=== PATIENT | male | born 1970 | race Caucasian/White ===

== ENCOUNTER 2018-03-08 10:58 | Inpatient (IN) ==
--- NOTE | 2018-03-08 11:37 | P.HPUP ---
The Pre-Admit History and Physical Examination regarding the above named patient was reviewed (including, but not limited to, vital signs, heart, lungs, co-morbid conditions), and upon re-examination it is noted that: the patient's condition has not significantly changed since the last examination.
[2018-03-08] MEDS ORDERED: Metoprolol Tartrate 25 MG Tablet PO ONE (11:42)
[2018-03-08] MEDS ORDERED: Chlorhexidine Gluconate 2% 1 Pack (2 Cloths) TOPICAL ONE (11:42)
[2018-03-08] MEDS ORDERED: Sodium Chlor 0.9% Inj 500 ML IV.SIG SCH (12:00)
[2018-03-08] MEDS: Dextrose 5%/NaCl 0.9% Inj 1,000 ML IV.CONT SCH ×2 (12:22→21:15)
[2018-03-08 12:24] LABS: Baso # (Auto) 0.1 th/mm3 (0.0-0.2); Baso % (Auto) 1.3 % (0.0-2.0); Eos # (Auto) 0.2 th/mm3 (0.0-0.4); Eos % (Auto) 1.8 % (0.0-4.0); Hemoglobin 12.6 gm/dL (13.0-17.0); Lymph # (Auto) 0.9 th/mm3 (1.0-4.8); Mean Corpuscular HGB Conc 32.4 % (32.0-36.0); Mean Corpuscular Hemoglobin 27.7 pg (27.0-34.0); Mean Corpuscular Volume 85.5 fL (80.0-100.0); Mean Platelet Volume 7.8 fL (7.0-11.0); Mono # (Auto) 0.7 th/mm3 (0.0-0.9); Mono % (Auto) 8.8 % (0.0-8.0); Neut # (Auto) 6.5 th/mm3 (1.8-7.7); Neut % (Auto) 77.1 % (16.0-70.0); Platelet Count 293 th/mm3 (150-450); Red Blood Count 4.57 mil/mm3 (4.50-5.90); Red Cell Distribution Width 24.4 % (11.6-17.2); White Blood Count 8.4 th/mm3 (4.0-11.0)
[2018-03-08 12:38] LABS: Activated Partial Thrombo Time 25.7 sec (24.3-30.1); Prothrombin Time 10.5 sec (9.8-11.6)
[2018-03-08 12:48] LABS: Albumin 3.2 g/dL (3.4-5.0); Anion Gap 10 meq/L (5-15); Aspartate Aminotransferase 72 U/L (15-37); Calcium 8.5 mg/dL (8.5-10.1); Carbon Dioxide 25.7 meq/L (21.0-32.0); Chloride 106 meq/L (98-107); Glomerular Filtration Rate 89 mL/min (>89); Glucose,Random 96 mg/dL (74-106); Sodium 142 meq/L (136-145)
--- NOTE | 2018-03-08 12:49 | XR ---
EXAM DATE: 03/08/2018 12:39 PM EDT AGE/SEX: 47 years / Male INDICATIONS: Evaluate for pneumonia, pneumothorax and communicable diseases. Pre-op colon surgery CLINICAL DATA: This is the patient's initial encounter. Patient reports that signs and symptoms have been present for 1 day and indicates a pain score of 0/10. MEDICAL/SURGICAL HISTORY: Hypertension. None. COMPARISON: No prior exams available for comparison. FINDINGS: A single AP view of the chest demonstrates the lungs to be symmetrically aerated without evidence of mass, infiltrate or effusion. The cardiomediastinal contours are unremarkable. Osseous structures a re intact. CONCLUSION: Negative examination. Electronically signed by: Abdi Rodrigues MD 03/08/2018 12:48 PM EDT
[2018-03-08 12:52] LABS: Amorphous Sediment,Urine Rare /hpf; Bilirubin,Urine Negative (Negative); Clarity,Urine Cloudy (Clear); Glucose,Urine (UA) Negative (Negative); Hyaline Casts,Urine 5 /lpf (0-3); Leukocyte Esterase,Urine Trace (Negative); Mucus,Urine Moderate /lpf (Occasional); Nitrite,Urine Negative (Negative); Specific Gravity,Urine 1.018 (1.002-1.035)
[2018-03-08 12:56] LABS: Alanine Aminotransferase 66 U/L (12-78); Alkaline Phosphatase 71 U/L (45-117); Blood Urea Nitrogen 8 mg/dL (7-18); Total Protein 7.6 g/dL (6.4-8.2)
[2018-03-08 12:58] LABS: Color,Urine Dark-Yellow (Yellw/Straw)
[2018-03-08] MEDS ORDERED: Neostigmine Inj 5 MG/5 ML Syringe IV.PUSH ONE (14:00)
[2018-03-08] MEDS ORDERED: Glycopyrrolate Inj 1 MG/5 ML Syringe IV.PUSH ONE (14:00)
[2018-03-08] MEDS ORDERED: Lidocaine PF 1% Inj 5 ML Syringe INFILTRATN ONE (14:00)
[2018-03-08] MEDS ORDERED: fentaNYL Citrate Inj 100 MCG/2 ML Ampul ONE ×2 (15:02→16:13)
[2018-03-08] MEDS ORDERED: HYDROmorphone PF Inj 2 MG/ML Vial ONE (15:05)
[2018-03-08] MEDS ORDERED: Ketamine Inj 500 MG/10 ML Vial ONE (15:22)
[2018-03-08] MEDS ORDERED: Bupivacaine PF 0.5% Inj 30 ML Vial ONE ×6 (15:29→15:38)
[2018-03-08] MEDS ORDERED: Acetaminophen 325 MG Tablet PO PRN (15:59)
[2018-03-08] MEDS ORDERED: Ketorolac Inj 30 MG/ML (IVP) Vial IV.PUSH PRN (15:59)
[2018-03-08] MEDS ORDERED: Potassium Chlor 20 mEq Premix 20 MEQ/100 ML PIGGYBACK IV.SIG PRN (15:59)
[2018-03-08] MEDS ORDERED: Potassium Chlor 40 mEq Premix 40 MEQ/100 ML PIGGYBACK IV.SIG PRN (15:59)
[2018-03-08] MEDS ORDERED: Naloxone Inj 0.4 MG/ML Vial IV.PUSH PRN (16:03)
[2018-03-08] MEDS ORDERED: *morphine SULFATE 4 MG/ML PERIprocedure ONLY ONE (16:16)
[2018-03-08] MEDS ORDERED: diphenhydrAMINE HCl 50 MG/ML VIAL IV.PUSH ONE (16:16)
[2018-03-08] MEDS ORDERED: KCL 20 mEq/D5W/NaCl 0.9% Inj 1,000 ML ONE (16:31)
[2018-03-08] MEDS ORDERED: Morphine Inj 30 MG/30 ML PCA.VIAL PCA ONE (16:31)
[2018-03-08] MEDS: Morphine Inj 30 MG/30 ML PCA.VIAL PCA PRN (19:00)
[2018-03-08] MEDS: Sertraline 100 MG Tablet PO SCH (21:18)
[2018-03-08] MEDS: amLODIPine 10 MG Tablet PO SCH (21:19)
[2018-03-08] MEDS: Lisinopril 10 MG Tablet PO SCH (21:19)
[2018-03-08] MEDS: KCL 20 mEq/D5W/NaCl 0.9% Inj 1,000 ML IV.CONT SCH (23:25)
[2018-03-09] MEDS: KCL 20 mEq/D5W/NaCl 0.9% Inj 1,000 ML IV.CONT SCH ×4 (03:00→18:38)
[2018-03-09] MEDS: Dextrose 5%/NaCl 0.9% Inj 1,000 ML IV.CONT SCH (05:22)
[2018-03-09 06:21] LABS: Baso % (Auto) 0.1 % (0.0-2.0); Hematocrit 34.3 % (39.0-51.0); Lymph # (Auto) 0.5 th/mm3 (1.0-4.8); Lymph % (Auto) 4.2 % (9.0-44.0); Mean Corpuscular Hemoglobin 28.2 pg (27.0-34.0); Mean Platelet Volume 7.9 fL (7.0-11.0); Mono # (Auto) 0.9 th/mm3 (0.0-0.9); Neut # (Auto) 9.5 th/mm3 (1.8-7.7); Neut % (Auto) 87.7 % (16.0-70.0); Platelet Count 286 th/mm3 (150-450); Red Cell Distribution Width 24.4 % (11.6-17.2); White Blood Count 10.8 th/mm3 (4.0-11.0)
[2018-03-09 06:46] LABS: Calcium 7.6 mg/dL (8.5-10.1); Carbon Dioxide 23.5 meq/L (21.0-32.0)
[2018-03-09] MEDS: Pantoprazole Inj 40 MG Vial IV.PUSH SCH (08:21)
[2018-03-09] MEDS: Morphine Inj 30 MG/30 ML PCA.VIAL PCA PRN (14:53)
[2018-03-09] MEDS: Sertraline 100 MG Tablet PO SCH (21:59)
[2018-03-09] MEDS: amLODIPine 10 MG Tablet PO SCH (22:00)
[2018-03-09] MEDS: Lisinopril 10 MG Tablet PO SCH (22:00)
--- NOTE | 2018-03-09 23:21 | MP ---
cc: Ru Graff MD DATE OF OPERATION: 03/08/2018 PREOPERATIVE DIAGNOSIS: Carcinoma of the ascending colon. PROCEDURE PERFORMED: Exploratory laparotomy with ascending colectomy. POSTOPERATIVE DIAGNOSES: 1. Large bulky cancer of the cecum and ascending colon. 2. Fatty change and possible cirrhosis of the liver. SURGEON: Ru Graff MD LOCKER ATTENDANT: Yinka Arias MD DESCRIPTION OF PROCEDURE: The patient was placed in the supine position. After adequate general anesthesia, the abdomen was prepped with Betadine solution and draped in the usual sterile fashion. With Dr. Arias's assistance, the abdomen was opened through a supraumbilical transverse incision, dividing the rectus muscles with electrocautery. There was an enormous amount of omental fat and omentum mesenteric fat throughout the abdomen, making exposure somewhat difficult. Palpation did reveal a fairly large tumor in the cecal area with some serosal puckering. There was some tethering to the retroperitoneum in the cecal area. The bowel was run from the ligament of Treitz down to the ileocecal valve and the small bowel was felt to be pretty unremarkable except for a very short mesentery. The colon was palpated and felt to be pretty unremarkable distal to the tumor. The liver had some either fatty change or early cirrhotic change. The gallbladder was pretty unremarkable. The stomach and duodenum were normal. The great vessels were of normal caliber and relatively soft to palpation. First, the right colon was mobilized medially by dividing along the white line of Toldt. The right ureter was identified and carefully preserved. Dissection then proceeded up the right gutter, taking down attachments to the hepatic flexure, entering the lesser sac and taking the gastrocolic omentum off the transverse colon. At a point in the right transverse colon, the bowel was divided with a JACQUELINE stapling device. The major vascular pedicles were then taken between Kellys, obtaining hemostasis with Vicryl ties. The bowel was then divided in the terminal ileum, again using the JACQUELINE stapling device. The specimen was removed. Bowel continuity was then restored by firing the JACQUELINE stapler across the antimesenteric ends of the bowel, closing the enterotomy with a TA 60 stapler. The mesenteric defect was closed with a running Vicryl suture and a 3-0 Vicryl crotch suture was placed as well. The abdomen was then irrigated copiously with normal saline. Adequate hemostasis was achieved at all sites. The transverse incision was closed anatomically in 2 layers using #1 PDS sutures to reapproximate the respective fascial layers. On-Q catheters were placed into the rectus sheaths on both sides and brought up through a subcutaneous tunnel above the transverse incision. The subcutaneous tissue was irrigated copiously and the skin closed with a row of surgical haley. The wound area was washed with normal saline and dried, sterile dressing of Telfa and gauze applied. The patient tolerated the procedure quite well and was brought to the recovery room in stable condition. Sponge and needle counts were correct at the end of the procedure. MD JACKY Srivastava/alonso , 10:57 PM , 11:05 PM
[2018-03-10] MEDS: Dextrose 5%/NaCl 0.9% Inj 1,000 ML IV.CONT SCH ×5 (02:41→20:42)
[2018-03-10 04:25] LABS: Baso % (Auto) 0.3 % (0.0-2.0); Eos % (Auto) 0.1 % (0.0-4.0); Hematocrit 35.3 % (39.0-51.0); Hemoglobin 10.9 gm/dL (13.0-17.0); Lymph # (Auto) 0.6 th/mm3 (1.0-4.8); Lymph % (Auto) 5.3 % (9.0-44.0); Mean Corpuscular Volume 90.2 fL (80.0-100.0); Mean Platelet Volume 7.4 fL (7.0-11.0); Mono # (Auto) 1.2 th/mm3 (0.0-0.9); Mono % (Auto) 10.2 % (0.0-8.0); Neut # (Auto) 9.6 th/mm3 (1.8-7.7); Neut % (Auto) 84.1 % (16.0-70.0); Platelet Count 265 th/mm3 (150-450); Red Blood Count 3.91 mil/mm3 (4.50-5.90); Red Cell Distribution Width 24.8 % (11.6-17.2); White Blood Count 11.4 th/mm3 (4.0-11.0)
[2018-03-10 04:58] LABS: Anion Gap 8 meq/L (5-15); Blood Urea Nitrogen 12 mg/dL (7-18); Calcium 7.7 mg/dL (8.5-10.1); Carbon Dioxide 24.8 meq/L (21.0-32.0); Chloride 109 meq/L (98-107); Glomerular Filtration Rate Greater Than 89 mL/min (>89); Glucose,Random 138 mg/dL (74-106); Potassium 4.7 meq/L (3.5-5.1); Sodium 142 meq/L (136-145)
[2018-03-10] MEDS: KCL 20 mEq/D5W/NaCl 0.9% Inj 1,000 ML IV.CONT SCH ×3 (05:44→20:27)
[2018-03-10] MEDS: Pantoprazole Inj 40 MG Vial IV.PUSH SCH (09:12)
--- NOTE | 2018-03-10 17:45 | P.PNCS ---
Subjective Colorectal Surgery Post Op Day #: 2 Interval history: afebrile, VSS UO good +flatus Objective Result Diagrams: 03/10/18 04:12 03/10/18 04:12 Objective Remarks: PE alert Abd - lg, softer, wound clean Assessment and Plan - Plan Imp: adv diet slowly OOB DC francis reviewed path with pt - outpt oncology fu
[2018-03-10] MEDS: Sertraline 100 MG Tablet PO SCH (20:41)
[2018-03-10] MEDS: Lisinopril 10 MG Tablet PO SCH (20:42)
[2018-03-10] MEDS: amLODIPine 10 MG Tablet PO SCH (20:42)
[2018-03-11] MEDS: KCL 20 mEq/D5W/NaCl 0.9% Inj 1,000 ML IV.CONT SCH ×3 (04:34→20:43)
--- NOTE | 2018-03-11 08:55 | P.PN ---
Subjective Interval history: POD#3 s/p ascending colectomy comfortable, feels better Physical Exam Vital signs: Vital Signs 03/10/18 11:08 03/10/18 16:00 03/10/18 20:00 Temperature 98.4 F 98.6 F Pulse Rate 97 H 97 H Respiratory Rate 17 18 Blood Pressure 123/76 123/76 Pulse Oximetry 94 L 94 L 94 L 03/10/18 20:09 03/10/18 20:10 03/11/18 00:13 Temperature 98.9 F 97.7 F Pulse Rate 103 H 100 H Respiratory Rate 20 17 Blood Pressure 132/75 131/76 Pulse Oximetry 94 L 93 L 92 L 03/11/18 04:37 Temperature 97.7 F Pulse Rate 95 H Respiratory Rate 18 Blood Pressure 127/74 Pulse Oximetry 94 L Intake & Output 03/10/18 03/11/18 03/11/18 18:59 06:59 18:59 Intake Total 1240 / 1240 720 / 720 Output Total 1050 / 1050 600 / 600 Balance 190 / 190 120 / 120 Weight 105.5 kg Intake: IV 1000 / 1000 D5W/NS + KCL 20 mEq Inj 1,000 1000 / 1000 ML @ 125 mls/hr IV.CONT .Q8H CAS Rx#:[id number] Oral 240 / 240 720 / 720 Output: Urine 50 / 50 600 / 600 Urine Amount (Catheter) 1000 / 1000 Indwelling Urethral Catheter 1000 / 1000 Other: # Voids 1 # Bowel Movements 1 - Routine Abdominal Exam Comments: soft, obese, tender wound clean - Urinary Catheter Management Indwelling Urethral Catheter Cath placed during this visit: yes, but has since been removed by the nurse Reason for continuing: Decision to DC catheter Insertion date: 03/08/18 Insertion time: 14:20 Removal date: 03/10/18 Removal time: 17:45 Results - Labs CBC & Chem 7: 03/10/18 04:12 03/10/18 04:12 Assessment and Plan - Assessment (1) Ascending colon malignant neoplasm Code(s): C18.2 - Malignant neoplasm of ascending colon Status: Acute - Plan Starting liquid diet today Mobilize Decrease IVF
[2018-03-11] MEDS: Pantoprazole Inj 40 MG Vial IV.PUSH SCH (09:00)
[2018-03-11] MEDS: Dextrose 5%/NaCl 0.9% Inj 1,000 ML IV.CONT SCH (09:01)
[2018-03-11] MEDS: Morphine Inj 30 MG/30 ML PCA.VIAL PCA PRN (18:21)
[2018-03-11] MEDS: amLODIPine 10 MG Tablet PO SCH (20:42)
[2018-03-11] MEDS: Lisinopril 10 MG Tablet PO SCH (20:42)
[2018-03-11] MEDS: Sertraline 100 MG Tablet PO SCH (20:43)
[2018-03-12] MEDS: Pantoprazole Inj 40 MG Vial IV.PUSH SCH (09:12)
[2018-03-12] MEDS: KCL 20 mEq/D5W/NaCl 0.9% Inj 1,000 ML IV.CONT SCH (09:13)
--- NOTE | 2018-03-12 10:47 | P.PN ---
Subjective Interval history: POD#4 s/p ascending colectomy comfortable Physical Exam Vital signs: Vital Signs 03/11/18 12:00 03/11/18 15:52 03/11/18 16:00 Temperature 97.4 F L 98.0 F Pulse Rate 98 H 97 H Respiratory Rate 19 17 Blood Pressure 133/70 150/80 H Pulse Oximetry 92 L 92 L 95 03/11/18 18:55 03/11/18 20:00 03/12/18 00:00 Temperature 98.2 F 98 F Pulse Rate 107 H 91 H Respiratory Rate 18 20 22 Blood Pressure 94/56 L 133/78 Pulse Oximetry 95 91 L 03/12/18 01:50 03/12/18 08:00 Temperature 97.6 F Pulse Rate 91 H Respiratory Rate 18 Blood Pressure 152/82 H Pulse Oximetry 94 L 93 L Intake & Output 03/11/18 03/12/18 03/12/18 18:59 06:59 18:59 Intake Total 2200 / 2200 1999 Output Total 925 / 925 Balance 1275 / 1275 1999 Weight 112.3 kg Intake: IV 1000 / 1000 1999 / 1999 D5W/NS + KCL 20 mEq Inj 1,000 1000 / 1000 1999 ML @ 80 mls/hr IV.CONT .[id number] CAS Rx#:[id number] Oral 1200 / 1200 Output: Urine 925 / 925 Other: # Bowel Movements 1 - Routine Abdominal Exam Comments: sft, obese, tender wound clean - Urinary Catheter Management Indwelling Urethral Catheter Cath placed during this visit: yes, but has since been removed by the nurse Reason for continuing: Decision to DC catheter Insertion date: 03/08/18 Insertion time: 14:20 Removal date: 03/10/18 Removal time: 17:45 Results - Labs CBC & Chem 7: 03/10/18 04:12 03/10/18 04:12 Assessment and Plan - Assessment (1) Ascending colon malignant neoplasm Code(s): C18.2 - Malignant neoplasm of ascending colon Status: Acute - Plan advance diet d/c pain pump Mobilize Decrease IVF
[2018-03-12] MEDS: Lisinopril 10 MG Tablet PO SCH (21:37)
[2018-03-12] MEDS: Sertraline 100 MG Tablet PO SCH (21:38)
[2018-03-12] MEDS: amLODIPine 10 MG Tablet PO SCH (21:38)
[2018-03-13] MEDS: KCL 20 mEq/D5W/NaCl 0.9% Inj 1,000 ML IV.CONT SCH (00:01)
[2018-03-13] MEDS: Pantoprazole Inj 40 MG Vial IV.PUSH SCH (09:03)
[2018-03-13 16:52] VITALS: BP 144/70; PULSE 80; RESP 18; TEMP 98; O2SAT 96
--- NOTE | 2018-03-13 23:22 | P.PNCS ---
Subjective Colorectal Surgery Post Op Day #: 5 Interval history: afebrile, VSS UO good +BM [place] PO Objective Result Diagrams: 03/10/18 04:12 03/10/18 04:12 Objective Remarks: PE alert Abd - lg, softer, wound clean Assessment and Plan - Assessment (1) Ascending colon malignant neoplasm Code(s): C18.2 - Malignant neoplasm of ascending colon Status: Acute - Plan Imp: adv diet slowly -reg diet OOB reviewed path with pt - outpt oncology fu DC plans
--- NOTE | 2018-04-20 11:51 | MD ---
cc: Ru Graff MD Silvina,Luis Penn MD DATE OF DISCHARGE: 03/13/2018 ADMITTING DIAGNOSIS: Carcinoma of the ascending colon. PROCEDURES: 03/08/2018: Exploratory laparotomy with ascending colectomy. DIAGNOSIS: DIAGNOSIS: Carcinoma of the ascending colon [id number]. HISTORY OF PRESENT ILLNESS: Mr. Solis is a 47-year-old male; seen a few years ago for hemorrhoid disease and elected never to have a colonoscopy. Returned at this time after his hemoglobin dropped and a colonoscopy found a mass in his right colon. Biopsy did show adenocarcinoma. He does go the bathroom 3 or 4 times a day with soft stools. Denies any rectal bleeding. Does have some cramps and abdominal pain in his abdomen. No nausea or vomiting. Denies any abdominal distention or diarrhea. No melena. Appetite has been good. Weight stable, about 240 pounds. The patient was admitted at this time for definitive surgical resection of the tumor. Please see admitting history and physical for more complete past medical and surgical history. PERTINENT PHYSICAL: GENERAL: Very pleasant, muscular male in no acute distress. ABDOMEN: Abdomen was really large, but soft, muscular; not distended. No tympany. No rebound or guarding or any masses noted. RECTAL: Anal inspection were benign canal with some hemorrhoid disease. Digital exam revealed good tone. No masses or tenderness or blood on the finger. HOSPITAL COURSE: After admission, the patient was taken to the operating room on 03/08/2018, at which point he underwent an exploratory laparotomy and ascending colectomy for a rather large bulky cancer of the cecum and ascending colon. He did have some fatty change and possible cirrhotic changes of the liver. The patient tolerated the procedure quite well. Initially, he was stabilized in the progressive care unit. His bowel function returned quite promptly and his diet was advanced accordingly. His IV fluids were tapered. He was able to ambulate with minimal assistance. The patient was able to be considered for discharge home on 03/13/2018. PATHOLOGY: Final pathology report reveals a poorly differentiated adenocarcinoma invading through the muscularis propria into the pericolonic tissue. All margins are clear. One lymph node out of 13 found to have metastatic cancer. Final stage was T3N1 with small vessel lymphovascular invasion being seen as well. DISCHARGE INSTRUCTIONS: The patient was discharged. He was eating a regular diet. He was encouraged to ambulate daily, avoiding any heavy lifting or straining. All preop medications were to be resumed. The patient will be given pain medicine for his postop pain relief. The patient will be seen in 1 weeks time for routine followup. Any problems prior to scheduled office visit, he was encouraged to call for more urgent attention. The patient will be considered for adjuvant chemotherapy in the outpatient setting. MD JACKY Srivastava/ld , 07:27 PM , 07:37 PM
== END 2018-03-13 17:13 | disposition home or self-care (01) ==
LOC: HSDI 10:58 → HCPC 18:23 → N07 03-10 22:44
PROVIDERS: ADMIT Colon & Rectal Surgery; ATTEND Colon & Rectal Surgery